=== PATIENT | male | born 1955 | race African-American/Black ===

== ENCOUNTER 2018-08-15 20:38 | Emergency (ER) | payer MEDICARE, OTHER ==
[2018-08-15] MEDS ORDERED: Lidocaine 1% (PF) 30 ML VIAL ONE (20:56)
== END 2018-08-15 21:28 | disposition home or self-care (01) ==
LOC: NAV ERS 20:38
DX: L02.01 Cutaneous abscess of face (principal); E78.5 Hyperlipidemia, unspecified; I10 Essential (primary) hypertension; I25.2 Old myocardial infarction; F17.210 Nicotine dependence, cigarettes, uncomplicated; Z79.899 Other long term (current) drug therapy
CPT/HCPCS: 10060; J2001

== ENCOUNTER 2020-06-12 20:31 | Inpatient (IN) | payer OTHER, MEDICARE ==
[2020-06-12 23:22] LABS: Bilirubin Negative (Negative); Blood, Urine Negative (Negative); Clarity Clear (Clear); Glucose, Urine (Dipstick) Negative (Negative); Ketone, Urine Negative (Negative); Leukocyte Trace (Negative); Nitrite Positive (Negative); Protein, Urine (Dipstick) Trace mg/dL (Neg-Trace); Urobilinogen 0.2 mg/dL (Less than 2); pH, Urine 5.5 (5.0-9.0)
[2020-06-12 23:23] LABS: Bacteria/HPF 1+ HPF (None Seen); RBC/HPF None Seen HPF (0-3); Squamous Epithelial 0-3 HPF (0-3)
[2020-06-12] MEDS ORDERED: Mirtazapine 15 MG TAB PO PRN (23:56)
[2020-06-12] MEDS ORDERED: TROLAMINE SALICYLATE TOP PRN (23:59)
[2020-06-13 05:49] LABS: ALT (SGPT) 12 U/L (8-55); AST (SGOT) 16 U/L (5-34); Albumin 3.9 g/dL (3.4-4.8); Alkaline Phosphatase 90 U/L (40-110); Anion Gap 16 mmol/L (10-20); BUN (Urea Nitrogen) 17 mg/dL (8.4-25.7); Bilirubin, Total 0.3 mg/dL (0.2-1.2); Calc. Creatinine Clearance 45 mL/min (70-130); Calcium 9.6 mg/dL (7.8-10.44); Carbon Dioxide 17 mmol/L (23-31); Chloride 105 mmol/L (98-107); Glucose 101 mg/dL (80-115); Potassium 4.4 mmol/L (3.5-5.1); Protein, Total 7.9 g/dL (5.8-8.1); Sodium 134 mmol/L (136-145)
[2020-06-13 06:11] LABS: #Basophils 0.1 thou/uL (0.0-0.2); #Eosinphils 0.4 thou/uL (0.0-0.7); #Lymphocytes 1.7 thou/uL (1.20-3.40); #Monocytes 0.9 thou/uL (0.11-0.59); #Neutrophils 4.5 thou/uL (1.40-6.50); %Basophils 0.9 % (0.0-1.0); %Eosinophils 5.8 % (0.0-10.0); %Lymphocytes 22.4 % (21.0-51.0); %Monocytes 11.4 % (0.0-10.0); %Neutrophils 59.5 % (42.0-75.0); Hemoglobin 8.6 g/dL (14.0-18.0); Hypochromia MARKED = >30 cells (100X) (0-5/hpf); MDiff Complete? YES; Macrocytosis SLIGHT = 6-15 cells (100X) (0-5/hpf); Mean Corpuscular HGB CONC 29.4 g/dL (32.0-36.0); Mean Corpuscular Hemoglobin 28.2 pg (27.0-31.0); Mean Platelet Volume 9.4 fL (7.4-10.4); Platelet Count 294 thou/uL (130-400); Platelet Morphology Comment Appears Adequate; RBC Distribution Width 15.2 % (11.5-14.5); Red Blood Cell (RBC) Count 3.06 mill/uL (4.70-6.10); White Blood Cell (WBC) Count 7.5 thou/uL (4.8-10.8)
[2020-06-13] MEDS: Gabapentin 300 MG CAP PO SCH ×3 (09:09→20:32)
[2020-06-13] MEDS: Cholecalciferol 1,000 UNITS (25 MCG) TAB PO SCH (09:09)
[2020-06-13] MEDS: Cyanocobalamin (Vitamin B-12) 1,000 MCG TAB PO SCH (09:09)
[2020-06-13] MEDS: Atorvastatin Calcium 40 MG TAB PO SCH (09:11)
[2020-06-13] MEDS: Tamsulosin HCl 0.4 MG CAP PO SCH (09:11)
[2020-06-13] MEDS: Docusate 100 MG CAP PO SCH ×2 (09:11→20:33)
[2020-06-13] MEDS: Apixaban 5 MG TAB PO SCH ×2 (09:11→20:33)
[2020-06-13] MEDS: Acetaminophen 325 MG TAB PO PRN ×2 (09:12→18:03)
[2020-06-13] MEDS: Lisinopril 20 MG TAB PO SCH (09:12)
[2020-06-13] MEDS: Carvedilol 6.25 MG TAB PO SCH ×2 (09:12→20:33)
[2020-06-13] MEDS: traMADol HCl 50 MG TAB PO PRN ×2 (09:15→18:02)
[2020-06-13 17:17] LABS: SARS-CoV-2 PCR by NAA Not Detected (NotDetected)
[2020-06-14] MEDS: Carvedilol 6.25 MG TAB PO SCH ×2 (08:31→21:06)
[2020-06-14] MEDS: Gabapentin 300 MG CAP PO SCH ×3 (08:32→21:07)
[2020-06-14] MEDS: Apixaban 5 MG TAB PO SCH ×2 (08:32→21:06)
[2020-06-14] MEDS: Atorvastatin Calcium 40 MG TAB PO SCH (08:32)
[2020-06-14] MEDS: Cholecalciferol 1,000 UNITS (25 MCG) TAB PO SCH (08:32)
[2020-06-14] MEDS: Docusate 100 MG CAP PO SCH ×2 (08:32→21:06)
[2020-06-14] MEDS: Tamsulosin HCl 0.4 MG CAP PO SCH (08:32)
[2020-06-14] MEDS: Lisinopril 20 MG TAB PO SCH (08:32)
[2020-06-14] MEDS: Cyanocobalamin (Vitamin B-12) 1,000 MCG TAB PO SCH (08:33)
[2020-06-14] MEDS: traMADol HCl 50 MG TAB PO PRN ×3 (08:40→21:08)
[2020-06-15] MEDS: traMADol HCl 50 MG TAB PO PRN ×2 (08:15→20:51)
[2020-06-15] MEDS: Carvedilol 6.25 MG TAB PO SCH ×2 (08:16→20:49)
[2020-06-15] MEDS: Cholecalciferol 1,000 UNITS (25 MCG) TAB PO SCH (08:16)
[2020-06-15] MEDS: Atorvastatin Calcium 40 MG TAB PO SCH (08:16)
[2020-06-15] MEDS: Tamsulosin HCl 0.4 MG CAP PO SCH (08:17)
[2020-06-15] MEDS: Gabapentin 300 MG CAP PO SCH ×3 (08:17→20:48)
[2020-06-15] MEDS: Apixaban 5 MG TAB PO SCH ×2 (08:17→20:49)
[2020-06-15] MEDS: Cyanocobalamin (Vitamin B-12) 1,000 MCG TAB PO SCH (08:17)
[2020-06-15] MEDS: Docusate 100 MG CAP PO SCH ×2 (08:17→20:48)
[2020-06-15] MEDS: Lisinopril 20 MG TAB PO SCH (08:17)
[2020-06-15] MEDS: Acetaminophen 325 MG TAB PO PRN (10:09)
[2020-06-15] MEDS: Ciprofloxacin 500 MG TAB PO SCH (20:48)
[2020-06-16 05:45] LABS: Hemoglobin 7.1 g/dL (14.0-18.0); Platelet Count 351 thou/uL (130-400)
[2020-06-16] MEDS: traMADol HCl 50 MG TAB PO PRN ×2 (05:55→12:27)
[2020-06-16] MEDS: Ciprofloxacin 500 MG TAB PO SCH ×2 (05:56→20:42)
[2020-06-16] MEDS: Cholecalciferol 1,000 UNITS (25 MCG) TAB PO SCH (09:19)
[2020-06-16] MEDS: Gabapentin 300 MG CAP PO SCH ×3 (09:20→20:42)
[2020-06-16] MEDS: Apixaban 5 MG TAB PO SCH ×2 (09:20→20:42)
[2020-06-16] MEDS: Atorvastatin Calcium 40 MG TAB PO SCH (09:20)
[2020-06-16] MEDS: Cyanocobalamin (Vitamin B-12) 1,000 MCG TAB PO SCH (09:20)
[2020-06-16] MEDS: Tamsulosin HCl 0.4 MG CAP PO SCH (09:20)
[2020-06-16] MEDS: Carvedilol 6.25 MG TAB PO SCH ×3 (09:21→20:40)
[2020-06-16] MEDS: Docusate 100 MG CAP PO SCH ×2 (09:21→20:40)
[2020-06-16] MEDS: Lisinopril 20 MG TAB PO SCH (09:21)
[2020-06-16] MEDS ORDERED: EPINEPHrine 1 MG/ML AMP IVP PRN (10:37)
[2020-06-16] MEDS ORDERED: diphenhydrAMINE 50 MG/ML VIAL IVP PRN (10:37)
[2020-06-16] MEDS: Acetaminophen 325 MG TAB PO PRN (12:28)
[2020-06-16] MEDS ORDERED: Sodium Chloride 0.9% 500 ML ONE (15:30)
[2020-06-16 23:02] LABS: Hemoglobin 9.3 g/dL (14.0-18.0)
[2020-06-17] MEDS: Ciprofloxacin 500 MG TAB PO SCH ×2 (05:33→20:27)
[2020-06-17] MEDS: Gabapentin 300 MG CAP PO SCH ×3 (08:51→20:26)
[2020-06-17] MEDS: Atorvastatin Calcium 40 MG TAB PO SCH (08:51)
[2020-06-17] MEDS: Docusate 100 MG CAP PO SCH ×2 (08:51→20:26)
[2020-06-17] MEDS: Cholecalciferol 1,000 UNITS (25 MCG) TAB PO SCH (08:51)
[2020-06-17] MEDS: Cyanocobalamin (Vitamin B-12) 1,000 MCG TAB PO SCH (08:52)
[2020-06-17] MEDS: Carvedilol 6.25 MG TAB PO SCH ×2 (08:52→20:27)
[2020-06-17] MEDS: Tamsulosin HCl 0.4 MG CAP PO SCH (08:52)
[2020-06-17] MEDS: Apixaban 5 MG TAB PO SCH ×2 (08:52→20:27)
[2020-06-17] MEDS: Lisinopril 20 MG TAB PO SCH (08:53)
[2020-06-17] MEDS: traMADol HCl 50 MG TAB PO PRN ×2 (08:57→17:04)
[2020-06-17] MEDS: Acetaminophen 325 MG TAB PO PRN ×2 (08:58→15:22)
[2020-06-18] MEDS: Ciprofloxacin 500 MG TAB PO SCH ×2 (05:26→20:48)
[2020-06-18] MEDS: Apixaban 5 MG TAB PO SCH ×2 (08:40→20:48)
[2020-06-18] MEDS: Cholecalciferol 1,000 UNITS (25 MCG) TAB PO SCH (08:40)
[2020-06-18] MEDS: Atorvastatin Calcium 40 MG TAB PO SCH (08:40)
[2020-06-18] MEDS: Cyanocobalamin (Vitamin B-12) 1,000 MCG TAB PO SCH (08:40)
[2020-06-18] MEDS: Tamsulosin HCl 0.4 MG CAP PO SCH (08:40)
[2020-06-18] MEDS: Docusate 100 MG CAP PO SCH ×2 (08:41→20:49)
[2020-06-18] MEDS: Carvedilol 6.25 MG TAB PO SCH ×2 (08:41→20:48)
[2020-06-18] MEDS: traMADol HCl 50 MG TAB PO PRN ×2 (08:42→14:44)
[2020-06-18] MEDS: Lisinopril 20 MG TAB PO SCH (08:42)
[2020-06-18] MEDS: Acetaminophen 325 MG TAB PO PRN ×2 (08:44→14:45)
[2020-06-18] MEDS: Gabapentin 300 MG CAP PO SCH ×3 (08:45→20:49)
[2020-06-18 11:37] LABS: Iron 34 ug/dL (65-175); Iron Binding Capacity, Total 306 mcg/dL (261-462)
[2020-06-18] MEDS: Ondansetron ODT 4 MG TAB PO PRN (13:21)
[2020-06-19 05:19] LABS: Anion Gap 17 mmol/L (10-20); BUN (Urea Nitrogen) 72 mg/dL (8.4-25.7); Calc. Creatinine Clearance 21 mL/min (70-130); Calcium 9.1 mg/dL (7.8-10.44); Carbon Dioxide 17 mmol/L (23-31); Chloride 105 mmol/L (98-107); Glucose 115 mg/dL (80-115); Sodium 134 mmol/L (136-145)
[2020-06-19] MEDS: Ciprofloxacin 500 MG TAB PO SCH ×2 (05:38→20:49)
[2020-06-19 05:52] LABS: Anisocytosis SLIGHT = 6-15 cells (100X) (0-5/hpf); Hemoglobin 9.8 g/dL (14.0-18.0); Hypersemented Neutrophil MODERATE; Large Platelets SLIGHT; Lymphocytes 10 % (21-51); MDiff Complete? YES; Mean Corpuscular HGB CONC 29.4 g/dL (32.0-36.0); Mean Corpuscular Hemoglobin 28.1 pg (27.0-31.0); Mean Corpuscular Volume 95.4 fL (78.0-98.0); Mean Platelet Volume 8.1 fL (7.4-10.4); Monocytes 4 % (0-10); Neutrophil 83 % (42-75); Platelet Count 375 thou/uL (130-400); Platelet Morphology Comment Appears Adequate; Poikilocytosis MODERATE=16-30 cells (100X) (0-5/hpf); RBC Distribution Width 14.9 % (11.5-14.5); Reactive Lymphocytes 3 % (0-10); Red Blood Cell (RBC) Count 3.49 mill/uL (4.70-6.10); Toxic Granulation MARKED; Vacuoles SLIGHT; White Blood Cell (WBC) Count 20.3 thou/uL (4.8-10.8)
[2020-06-19] MEDS: Cyanocobalamin (Vitamin B-12) 1,000 MCG TAB PO SCH (08:03)
[2020-06-19] MEDS: Atorvastatin Calcium 40 MG TAB PO SCH (08:03)
[2020-06-19] MEDS: Docusate 100 MG CAP PO SCH ×2 (08:03→20:49)
[2020-06-19] MEDS: Apixaban 5 MG TAB PO SCH ×2 (08:03→20:49)
[2020-06-19] MEDS: Tamsulosin HCl 0.4 MG CAP PO SCH (08:03)
[2020-06-19] MEDS: traMADol HCl 50 MG TAB PO PRN ×3 (08:03→20:51)
[2020-06-19] MEDS: Cholecalciferol 1,000 UNITS (25 MCG) TAB PO SCH (08:03)
[2020-06-19] MEDS: Gabapentin 300 MG CAP PO SCH ×3 (08:04→20:50)
[2020-06-19] MEDS: Acetaminophen 325 MG TAB PO PRN ×3 (08:05→20:51)
[2020-06-19] MEDS: Carvedilol 6.25 MG TAB PO SCH ×2 (08:07→20:49)
[2020-06-19] MEDS: Lisinopril 20 MG TAB PO SCH (08:08)
[2020-06-19] MEDS: Ondansetron ODT 4 MG TAB PO PRN (12:42)
[2020-06-20] MEDS: Ciprofloxacin 500 MG TAB PO SCH ×2 (06:11→20:34)
[2020-06-20] MEDS: traMADol HCl 50 MG TAB PO PRN (09:12)
[2020-06-20] MEDS: Acetaminophen 325 MG TAB PO PRN ×2 (09:13→15:44)
[2020-06-20] MEDS: Atorvastatin Calcium 40 MG TAB PO SCH (09:14)
[2020-06-20] MEDS: Docusate 100 MG CAP PO SCH ×2 (09:14→20:34)
[2020-06-20] MEDS: Cyanocobalamin (Vitamin B-12) 1,000 MCG TAB PO SCH (09:14)
[2020-06-20] MEDS: Lisinopril 20 MG TAB PO SCH (09:14)
[2020-06-20] MEDS: Gabapentin 300 MG CAP PO SCH ×3 (09:15→20:34)
[2020-06-20] MEDS: Carvedilol 6.25 MG TAB PO SCH ×2 (09:15→20:34)
[2020-06-20] MEDS: Apixaban 5 MG TAB PO SCH ×2 (09:15→20:34)
[2020-06-20] MEDS: Tamsulosin HCl 0.4 MG CAP PO SCH (09:15)
[2020-06-20] MEDS: Cholecalciferol 1,000 UNITS (25 MCG) TAB PO SCH (09:16)
[2020-06-21] MEDS: traMADol HCl 50 MG TAB PO PRN ×3 (03:18→20:16)
[2020-06-21] MEDS: Cholecalciferol 1,000 UNITS (25 MCG) TAB PO SCH (08:47)
[2020-06-21] MEDS: Docusate 100 MG CAP PO SCH ×2 (08:47→20:17)
[2020-06-21] MEDS: Apixaban 5 MG TAB PO SCH ×2 (08:47→20:17)
[2020-06-21] MEDS: Atorvastatin Calcium 40 MG TAB PO SCH (08:47)
[2020-06-21] MEDS: Tamsulosin HCl 0.4 MG CAP PO SCH (08:47)
[2020-06-21] MEDS: Lisinopril 20 MG TAB PO SCH (08:48)
[2020-06-21] MEDS: Cyanocobalamin (Vitamin B-12) 1,000 MCG TAB PO SCH (08:49)
[2020-06-21] MEDS: Carvedilol 6.25 MG TAB PO SCH ×3 (08:49→20:19)
[2020-06-21] MEDS: Gabapentin 300 MG CAP PO SCH ×3 (08:49→20:16)
[2020-06-21] MEDS: Acetaminophen 325 MG TAB PO PRN (09:43)
[2020-06-21] MEDS ORDERED: Polyethylene Glycol 3350 17 GM Packet PO PRN (14:10)
[2020-06-21] MEDS ORDERED: Milk Of Magnesia 30 ML UDCUP PO PRN (14:55)
[2020-06-22 05:40] LABS: #Basophils 0.1 thou/uL (0.0-0.2); #Eosinphils 0.3 thou/uL (0.0-0.7); #Lymphocytes 1.8 thou/uL (1.20-3.40); #Monocytes 1.3 thou/uL (0.11-0.59); #Neutrophils 9.4 thou/uL (1.40-6.50); %Basophils 0.8 % (0.0-1.0); %Eosinophils 2.3 % (0.0-10.0); %Monocytes 9.8 % (0.0-10.0); %Neutrophils 73.1 % (42.0-75.0); Hemoglobin 9.9 g/dL (14.0-18.0); Mean Corpuscular HGB CONC 29.3 g/dL (32.0-36.0); Mean Corpuscular Hemoglobin 28.2 pg (27.0-31.0); Mean Corpuscular Volume 96.2 fL (78.0-98.0); Mean Platelet Volume 7.6 fL (7.4-10.4); Platelet Count 417 thou/uL (130-400); RBC Distribution Width 15.6 % (11.5-14.5); Red Blood Cell (RBC) Count 3.51 mill/uL (4.70-6.10); White Blood Cell (WBC) Count 12.9 thou/uL (4.8-10.8)
[2020-06-22 05:49] LABS: Anion Gap 18 mmol/L (10-20); BUN (Urea Nitrogen) 76 mg/dL (8.4-25.7); Calc. Creatinine Clearance 22 mL/min (70-130); Calcium 9.5 mg/dL (7.8-10.44); Carbon Dioxide 14 mmol/L (23-31); Chloride 106 mmol/L (98-107); Glucose 95 mg/dL (80-115); Potassium 5.5 mmol/L (3.5-5.1); Sodium 132 mmol/L (136-145)
[2020-06-22] MEDS: traMADol HCl 50 MG TAB PO PRN ×3 (08:37→20:49)
[2020-06-22] MEDS: Gabapentin 300 MG CAP PO SCH ×3 (08:40→20:41)
[2020-06-22] MEDS: Apixaban 5 MG TAB PO SCH ×2 (08:42→20:41)
[2020-06-22] MEDS: Docusate 100 MG CAP PO SCH ×2 (08:43→20:41)
[2020-06-22] MEDS: Tamsulosin HCl 0.4 MG CAP PO SCH (08:44)
[2020-06-22] MEDS: Cholecalciferol 1,000 UNITS (25 MCG) TAB PO SCH (08:44)
[2020-06-22] MEDS: Ferrous Sulfate 325 MG TAB PO SCH (08:45)
[2020-06-22] MEDS: Atorvastatin Calcium 40 MG TAB PO SCH (08:45)
[2020-06-22] MEDS: Cyanocobalamin (Vitamin B-12) 1,000 MCG TAB PO SCH (09:02)
[2020-06-22] MEDS: Carvedilol 6.25 MG TAB PO SCH ×2 (10:40→20:42)
[2020-06-22] MEDS: Lisinopril 20 MG TAB PO SCH (10:40)
[2020-06-22] MEDS: Acetaminophen 325 MG TAB PO PRN (12:08)
[2020-06-23] MEDS: traMADol HCl 50 MG TAB PO PRN ×2 (03:41→09:52)
[2020-06-23] MEDS: Gabapentin 300 MG CAP PO SCH ×3 (09:07→20:49)
[2020-06-23] MEDS: Cholecalciferol 1,000 UNITS (25 MCG) TAB PO SCH (09:09)
[2020-06-23] MEDS: Cyanocobalamin (Vitamin B-12) 1,000 MCG TAB PO SCH (09:09)
[2020-06-23] MEDS: Apixaban 5 MG TAB PO SCH ×2 (09:10→20:49)
[2020-06-23] MEDS: Tamsulosin HCl 0.4 MG CAP PO SCH (09:10)
[2020-06-23] MEDS: Acetaminophen 325 MG TAB PO PRN (09:11)
[2020-06-23] MEDS: Ferrous Sulfate 325 MG TAB PO SCH (09:11)
[2020-06-23] MEDS: Atorvastatin Calcium 40 MG TAB PO SCH (09:13)
[2020-06-23] MEDS: Docusate 100 MG CAP PO SCH ×2 (09:14→20:49)
[2020-06-23] MEDS: Carvedilol 6.25 MG TAB PO SCH ×2 (09:14→20:47)
[2020-06-23] MEDS: Lisinopril 20 MG TAB PO SCH (09:15)
[2020-06-23] MEDS: Sodium Chloride 0.9% 1,000 ML IV SCH (20:48)
[2020-06-23 21:29] LABS: Anion Gap 17 mmol/L (10-20); BUN (Urea Nitrogen) 71 mg/dL (8.4-25.7); Calc. Creatinine Clearance 23 mL/min (70-130); Calcium 9.7 mg/dL (7.8-10.44); Carbon Dioxide 17 mmol/L (23-31); Chloride 106 mmol/L (98-107); Glucose 104 mg/dL (80-115); Potassium 5.3 mmol/L (3.5-5.1); Sodium 135 mmol/L (136-145)
[2020-06-24] MEDS: traMADol HCl 50 MG TAB PO PRN ×2 (04:06→17:48)
[2020-06-24 08:15] LABS: Anion Gap 17 mmol/L (10-20); BUN (Urea Nitrogen) 65 mg/dL (8.4-25.7); Calc. Creatinine Clearance 28 mL/min (70-130); Calcium 9.9 mg/dL (7.8-10.44); Carbon Dioxide 14 mmol/L (23-31); Chloride 108 mmol/L (98-107); Glucose 96 mg/dL (80-115); Potassium 5.1 mmol/L (3.5-5.1); Sodium 134 mmol/L (136-145)
[2020-06-24] MEDS: Cholecalciferol 1,000 UNITS (25 MCG) TAB PO SCH (08:45)
[2020-06-24] MEDS: Docusate 100 MG CAP PO SCH ×2 (08:46→20:40)
[2020-06-24] MEDS: Tamsulosin HCl 0.4 MG CAP PO SCH (08:46)
[2020-06-24] MEDS: Apixaban 5 MG TAB PO SCH ×2 (08:46→20:40)
[2020-06-24] MEDS: Cyanocobalamin (Vitamin B-12) 1,000 MCG TAB PO SCH (08:46)
[2020-06-24] MEDS: Gabapentin 300 MG CAP PO SCH ×3 (08:46→20:40)
[2020-06-24] MEDS: Carvedilol 6.25 MG TAB PO SCH ×2 (08:46→20:40)
[2020-06-24] MEDS: Ferrous Sulfate 325 MG TAB PO SCH (08:46)
[2020-06-24] MEDS: Atorvastatin Calcium 40 MG TAB PO SCH (08:46)
[2020-06-24] MEDS: Sodium Chloride 0.9% 1,000 ML IV SCH ×2 (10:24→20:42)
[2020-06-24] MEDS: guaiFENesin 100 MG/5 ML UDCUP PO PRN (10:32)
[2020-06-24] MEDS: Ondansetron ODT 4 MG TAB PO PRN (14:26)
[2020-06-24] MEDS: Sodium Bicarbonate Tab 325 MG TAB PO SCH (20:40)
[2020-06-24 22:11] VITALS: BMI 43.0
[2020-06-25] MEDS: Cyanocobalamin (Vitamin B-12) 1,000 MCG TAB PO SCH (08:56)
[2020-06-25] MEDS: Gabapentin 300 MG CAP PO SCH ×3 (08:56→21:49)
[2020-06-25] MEDS: Docusate 100 MG CAP PO SCH ×2 (08:56→21:48)
[2020-06-25] MEDS: Tamsulosin HCl 0.4 MG CAP PO SCH (08:56)
[2020-06-25] MEDS: Sodium Bicarbonate Tab 325 MG TAB PO SCH ×2 (08:56→21:48)
[2020-06-25] MEDS: Cholecalciferol 1,000 UNITS (25 MCG) TAB PO SCH (08:56)
[2020-06-25] MEDS: Ferrous Sulfate 325 MG TAB PO SCH (08:56)
[2020-06-25] MEDS: Atorvastatin Calcium 40 MG TAB PO SCH (08:57)
[2020-06-25] MEDS: Apixaban 5 MG TAB PO SCH ×2 (08:57→21:49)
[2020-06-25] MEDS: Carvedilol 6.25 MG TAB PO SCH ×2 (08:57→21:49)
[2020-06-25] MEDS: Sodium Chloride 0.9% 1,000 ML IV SCH ×2 (10:11→23:00)
[2020-06-25] MEDS: Ondansetron ODT 4 MG TAB PO PRN (10:15)
[2020-06-25] MEDS: traMADol HCl 50 MG TAB PO PRN ×2 (12:53→21:48)
[2020-06-25] MEDS: guaiFENesin 100 MG/5 ML UDCUP PO PRN ×2 (13:04→21:48)
[2020-06-25 13:19] LABS: Anion Gap 18 mmol/L (10-20); BUN (Urea Nitrogen) 46 mg/dL (8.4-25.7); Calc. Creatinine Clearance 33 mL/min (70-130); Calcium 9.6 mg/dL (7.8-10.44); Carbon Dioxide 15 mmol/L (23-31); Chloride 108 mmol/L (98-107); Glucose 127 mg/dL (80-115); Potassium 4.9 mmol/L (3.5-5.1); Sodium 136 mmol/L (136-145)
[2020-06-26] MEDS: Ferrous Sulfate 325 MG TAB PO SCH (08:58)
[2020-06-26] MEDS: Gabapentin 300 MG CAP PO SCH ×3 (08:59→21:59)
[2020-06-26] MEDS: Cyanocobalamin (Vitamin B-12) 1,000 MCG TAB PO SCH (08:59)
[2020-06-26] MEDS: Docusate 100 MG CAP PO SCH ×2 (08:59→22:00)
[2020-06-26] MEDS: Atorvastatin Calcium 40 MG TAB PO SCH (09:00)
[2020-06-26] MEDS: Apixaban 5 MG TAB PO SCH ×2 (09:00→21:58)
[2020-06-26] MEDS: Carvedilol 6.25 MG TAB PO SCH ×2 (09:00→21:56)
[2020-06-26] MEDS: Sodium Bicarbonate Tab 325 MG TAB PO SCH ×2 (09:00→22:00)
[2020-06-26] MEDS: Cholecalciferol 1,000 UNITS (25 MCG) TAB PO SCH (09:00)
[2020-06-26] MEDS: Acetaminophen 325 MG TAB PO PRN (09:05)
[2020-06-26] MEDS: Tamsulosin HCl 0.4 MG CAP PO SCH (09:05)
[2020-06-26] MEDS: traMADol HCl 50 MG TAB PO PRN (09:06)
[2020-06-26] MEDS: Sodium Chloride 0.9% 1,000 ML IV SCH (12:49)
[2020-06-27] MEDS: Docusate 100 MG CAP PO SCH ×2 (09:07→20:52)
[2020-06-27] MEDS: Tamsulosin HCl 0.4 MG CAP PO SCH (09:07)
[2020-06-27] MEDS: Atorvastatin Calcium 40 MG TAB PO SCH (09:08)
[2020-06-27] MEDS: Ferrous Sulfate 325 MG TAB PO SCH (09:08)
[2020-06-27] MEDS: Sodium Bicarbonate Tab 325 MG TAB PO SCH ×2 (09:08→20:53)
[2020-06-27] MEDS: Cholecalciferol 1,000 UNITS (25 MCG) TAB PO SCH (09:08)
[2020-06-27] MEDS: Apixaban 5 MG TAB PO SCH ×2 (09:08→20:53)
[2020-06-27] MEDS: Cyanocobalamin (Vitamin B-12) 1,000 MCG TAB PO SCH (09:08)
[2020-06-27] MEDS: Carvedilol 6.25 MG TAB PO SCH ×2 (09:09→20:53)
[2020-06-27] MEDS: traMADol HCl 50 MG TAB PO PRN ×2 (09:09→14:50)
[2020-06-27] MEDS: Acetaminophen 325 MG TAB PO PRN ×3 (09:10→20:53)
[2020-06-27] MEDS: Gabapentin 300 MG CAP PO SCH ×3 (09:11→20:52)
[2020-06-27] MEDS: Sodium Chloride 0.9% 1,000 ML IV SCH ×2 (14:45→19:20)
[2020-06-27] MEDS ORDERED: traMADol HCl 50 MG TAB PO SCH (18:30)
[2020-06-27] MEDS: Nicotine 14 MG PATCH TD SCH (20:49)
[2020-06-28] MEDS: Sodium Chloride 0.9% 1,000 ML IV SCH (04:29)
[2020-06-28] MEDS: Cholecalciferol 1,000 UNITS (25 MCG) TAB PO SCH (08:58)
[2020-06-28] MEDS: Docusate 100 MG CAP PO SCH ×2 (08:58→20:41)
[2020-06-28] MEDS: Cyanocobalamin (Vitamin B-12) 1,000 MCG TAB PO SCH (08:59)
[2020-06-28] MEDS: Sodium Bicarbonate Tab 325 MG TAB PO SCH ×2 (08:59→20:38)
[2020-06-28] MEDS: Atorvastatin Calcium 40 MG TAB PO SCH (08:59)
[2020-06-28] MEDS: Tamsulosin HCl 0.4 MG CAP PO SCH (08:59)
[2020-06-28] MEDS: Gabapentin 300 MG CAP PO SCH ×3 (08:59→20:40)
[2020-06-28] MEDS: Ferrous Sulfate 325 MG TAB PO SCH (08:59)
[2020-06-28] MEDS: Acetaminophen 325 MG TAB PO PRN ×2 (09:00→14:55)
[2020-06-28] MEDS: Apixaban 5 MG TAB PO SCH ×2 (09:00→20:38)
[2020-06-28] MEDS: Carvedilol 6.25 MG TAB PO SCH ×2 (09:00→20:38)
[2020-06-28] MEDS: traMADol HCl 50 MG TAB PO PRN ×3 (09:01→20:38)
[2020-06-28 09:18] LABS: #Basophils 0.1 thou/uL (0.0-0.2); #Eosinphils 0.4 thou/uL (0.0-0.7); #Lymphocytes 1.4 thou/uL (1.20-3.40); #Monocytes 1.1 thou/uL (0.11-0.59); #Neutrophils 11.2 thou/uL (1.40-6.50); %Basophils 0.5 % (0.0-1.0); %Eosinophils 2.5 % (0.0-10.0); %Lymphocytes 9.9 % (21.0-51.0); %Monocytes 7.9 % (0.0-10.0); %Neutrophils 79.2 % (42.0-75.0); Hemoglobin 10.4 g/dL (14.0-18.0); Mean Corpuscular HGB CONC 29.7 g/dL (32.0-36.0); Mean Corpuscular Hemoglobin 27.7 pg (27.0-31.0); Mean Corpuscular Volume 93.2 fL (78.0-98.0); Mean Platelet Volume 8.1 fL (7.4-10.4); Platelet Count 330 thou/uL (130-400); RBC Distribution Width 15.2 % (11.5-14.5); Red Blood Cell (RBC) Count 3.77 mill/uL (4.70-6.10); White Blood Cell (WBC) Count 14.1 thou/uL (4.8-10.8)
[2020-06-28 09:30] LABS: Anion Gap 14 mmol/L (10-20); BUN (Urea Nitrogen) 22 mg/dL (8.4-25.7); Calc. Creatinine Clearance 45 mL/min (70-130); Calcium 9.4 mg/dL (7.8-10.44); Carbon Dioxide 18 mmol/L (23-31); Chloride 107 mmol/L (98-107); Glucose 88 mg/dL (80-115); Potassium 4.3 mmol/L (3.5-5.1); Sodium 135 mmol/L (136-145)
[2020-06-28] MEDS: Nicotine 14 MG PATCH TD SCH (20:43)
[2020-06-29] MEDS: traMADol HCl 50 MG TAB PO PRN (04:30)
[2020-06-29 07:09] LABS: Hemoglobin 9.6 g/dL (14.0-18.0); Platelet Count 307 thou/uL (130-400)
[2020-06-29 08:29] VITALS: BP 160/73; TEMP 97.4
[2020-06-29] MEDS: Docusate 100 MG CAP PO SCH (09:07)
[2020-06-29] MEDS: Ferrous Sulfate 325 MG TAB PO SCH (09:07)
[2020-06-29] MEDS: Atorvastatin Calcium 40 MG TAB PO SCH (09:07)
[2020-06-29] MEDS: Cyanocobalamin (Vitamin B-12) 1,000 MCG TAB PO SCH (09:08)
[2020-06-29] MEDS: Cholecalciferol 1,000 UNITS (25 MCG) TAB PO SCH (09:08)
[2020-06-29] MEDS: Sodium Bicarbonate Tab 325 MG TAB PO SCH (09:08)
[2020-06-29] MEDS: Carvedilol 6.25 MG TAB PO SCH (09:08)
[2020-06-29] MEDS: Tamsulosin HCl 0.4 MG CAP PO SCH (09:08)
[2020-06-29] MEDS: Apixaban 5 MG TAB PO SCH (09:09)
[2020-06-29] MEDS: Gabapentin 300 MG CAP PO SCH (09:10)
== END 2020-06-29 13:41 | disposition home health service (06) | DRG 560 ==
LOC: NAV ACUTE 20:31
PROVIDERS: ADMIT Family Medicine; ATTEND Family Medicine
PROC: 30233N1 Transfusion of Nonautologous Red Blood Cells into Peripheral Vein, Percutaneous Approach (ICD-10-PCS; principal; 2020-06-16)
DX: Z47.81 Encounter for orthopedic aftercare following surgical amputation (principal); N39.0 Urinary tract infection, site not specified; N17.9 Acute kidney failure, unspecified; E87.2 Acidosis; I10 Essential (primary) hypertension; E78.5 Hyperlipidemia, unspecified; F17.210 Nicotine dependence, cigarettes, uncomplicated; N40.0 Benign prostatic hyperplasia without lower urinary tract symptoms; B96.5 Pseudomonas (aeruginosa) (mallei) (pseudomallei) as the cause of diseases classified elsewhere; K59.00 Constipation, unspecified; D72.829 Elevated white blood cell count, unspecified; D50.9 Iron deficiency anemia, unspecified; I25.10 Atherosclerotic heart disease of native coronary artery without angina pectoris; Z79.01 Long term (current) use of anticoagulants; I25.2 Old myocardial infarction; Z88.0 Allergy status to penicillin; Z95.1 Presence of aortocoronary bypass graft; Z89.612 Acquired absence of left leg above knee; Z88.1 Allergy status to other antibiotic agents; Z89.611 Acquired absence of right leg above knee; Z95.0 Presence of cardiac pacemaker
CPT/HCPCS: 36415; 36430; 80048; 80053; 81003; 81015; 82728; 83540; 83550; 83880; 85014; 85018; 85025; 85049; 86850; 86900; 86901; 87077; 87086; 87186; 87635; J7030; J7050; P9016; Q0162; U0003; U0005